=== PATIENT | male | born 1970 ===

== ENCOUNTER 2025-03-19 07:43 | Outpatient (REF) | payer BC, SELFPAY ==
--- NOTE | ~2025-03-19 | US_ITS ---
EXAMINATION: US THYROID HISTORY: NON TOXIC SINGLE THYROID GOITER TECHNIQUE: Real-time grayscale ultrasound imaging was performed and images were reviewed. COMPARISON: There are no prior studies for comparison. FINDINGS: SIZE: The right thyroid lobe measures 5.6 x 1.8 x 2.1 cm. The left thyroid lobe measures 5.2 x 1.7 x 1.8 cm. The isthmus measures 6 mm. FLOW: Flow to the gland is normal. ECHOGENICITY: The echotexture of the gland is homogeneous. NODULES: Multiple nodules are seen in both thyroid lobes as described below: Nodule #: 1 Location: Right lower pole measuring 7 x 5 x 6 mm. Shape: Wider than tall (0 points) Margins: Smooth (0 points) Echotexture: Isoechoic (1 point) Composition: Solid (2 points) Calcifications: None (0 points) Total points: 3 TIRADS: TR3: Mildly suspicious. Nodule #: 2 Location: Upper pole of the left thyroid lobe, measuring 12 x 10 x 9 mm. Shape: Round (0 points) Margins: Smooth (0 points) Echotexture: Indeterminate (1 point) Composition: Mixed (1 point) Calcifications: None (0 points) Total points: 1 TIRADS: TR1: Benign Nodule #: 3 Location: Lower pole of the left thyroid lobe measuring 20 x 17 x 17 mm. Shape: Wider than tall (0 points) Margins: Smooth (0 points) Echotexture: Isoechoic (1 point) Composition: Mostly solid (2 points) Calcifications: None (0 points) Total points: 3 TIRADS: TR3: Mildly suspicious. US/US thyroid IMPRESSION: Bilateral thyroid nodules as described. According to ACR TI-RADS guidelines, follow-up of the left lower pole nodule (nodule #3) is recommended. ACR TI-RADS Guidelines TR1 (0 points): Benign, No follow-up or biopsy required TR2 (2 points): Not Suspicious, No biopsy or follow up indicated TR3 (3 points): Mildly Suspicious, FNA if >= 2.5 cm, Follow if >= 1.5 cm TR4 (4-6 points): Moderately Suspicious, FNA if >= 1.5 cm, Follow if >= 1.0 cm TR5 (>=7 points): Highly Suspicious, FNA if >= 1.0 cm, Follow if >= 0.5 cm Electronically signed by: Marshal Lea MD 03/20/2025 02:34 PM EDT
== END 2025-03-19 07:44 | disposition home or self-care (01) ==
LOC: HO.UMASIMG 07:43
PROVIDERS: Visit Provider Emergency Medicine
DX: E04.1 Nontoxic single thyroid nodule (principal); K21.9 Gastro-esophageal reflux disease without esophagitis; R20.2 Paresthesia of skin; R07.9 Chest pain, unspecified
CPT/HCPCS: 76536

== ENCOUNTER → 2025-03-19 10:00 | Outpatient (BNV) | payer BC, SELFPAY | PROVIDERS: Visit Provider Radiology Diagnostic Radiology | DX: E04.1 Nontoxic single thyroid nodule (principal) | CPT/HCPCS: 76536 ==